=== PATIENT | female | born 1975 | race Caucasian/White ===

== ENCOUNTER 2017-09-16 19:11 | Emergency (ER) | payer BC, OTHER ==
[2017-09-16] MEDS ORDERED: Adacel (T-DAP) 0.5 ML VIAL ONE (19:21)
== END 2017-09-16 19:44 | disposition home or self-care (01) ==
LOC: SCSER 19:11
DX: S51.812A Laceration without foreign body of left forearm, initial encounter (principal); G40.909 Epilepsy, unspecified, not intractable, without status epilepticus; F41.9 Anxiety disorder, unspecified; Z79.899 Other long term (current) drug therapy; Z23 Encounter for immunization; W54.0XXA Bitten by dog, initial encounter
CPT/HCPCS: 90471; 90715

== ENCOUNTER 2017-09-17 18:38 | Emergency (ER) | payer BC, OTHER ==
[2017-09-17] MEDS ORDERED: Sulfameth/Trimethoprim DS 800-160mg TAB ONE (19:32)
[2017-09-17] MEDS ORDERED: cefTRIAXone\\ROCEPHIN 1 GM VIAL ONE (19:33)
[2017-09-17] MEDS ORDERED: Lidocaine 1% PF 5 ML VIAL ONE (19:33)
--- NOTE | 2017-09-17 20:02 | RAD ---
LEFT FOREARM: 09/17/17 Two views. HISTORY: Swelling and redness left hand and forearm. Dog bite yesterday. No fracture or osseous abnormality. No soft tissue gas. IMPRESSION: No acute finding. POS: [facility]
== END 2017-09-17 20:19 | disposition home or self-care (01) ==
LOC: SCSER 18:38
DX: S51.852A Open bite of left forearm, initial encounter (principal); L03.114 Cellulitis of left upper limb; G40.909 Epilepsy, unspecified, not intractable, without status epilepticus; F41.9 Anxiety disorder, unspecified; Z79.899 Other long term (current) drug therapy; W54.0XXA Bitten by dog, initial encounter
CPT/HCPCS: 96372; J0696; J2001

== ENCOUNTER 2017-09-18 12:33 | Emergency (ER) | payer BC ==
[2017-09-18] MEDS ORDERED: Bacitracin Zinc 1 Packet ONE (13:30)
== END 2017-09-18 13:46 | disposition home or self-care (01) ==
LOC: SCSER 12:33
DX: S51.852D Open bite of left forearm, subsequent encounter (principal); G40.909 Epilepsy, unspecified, not intractable, without status epilepticus; F41.9 Anxiety disorder, unspecified; Z79.899 Other long term (current) drug therapy; W54.0XXA Bitten by dog, initial encounter
CPT/HCPCS: 99282

== ENCOUNTER 2018-03-11 07:28 | Emergency (ER) | payer BC, OTHER ==
[2018-03-11] MEDS ORDERED: Lidocaine 1% w/Epinephrine 1:100K 20 ML VIAL ONE (08:03)
[2018-03-11 08:26] LABS: #Basophils 0.1 thou/uL (0.0-0.2); #Eosinphils 0.2 thou/uL (0.0-0.7); #Monocytes 0.3 thou/uL (0.11-0.59); #Neutrophils 1.8 thou/uL (1.40-6.50); %Basophils 2.5 % (0.0-1.0); %Eosinophils 7.1 % (0.0-10.0); %Lymphocytes 28.8 % (21.0-51.0); %Monocytes 8.1 % (0.0-10.0); %Neutrophils 53.5 % (42.0-75.0); Hemoglobin 10.4 g/dL (12.0-16.0); Mean Corpuscular HGB CONC 32.5 g/dL (32.0-36.0); Mean Corpuscular Hemoglobin 25.2 pg (27.0-31.0); Mean Corpuscular Volume 77.5 fl (81.0-99.0); PTT 28.8 SEC (22.9-36.1); Platelet Count 224 thou/uL (130-400); Prothrombin Time 13.7 SEC (12.0-14.7); RBC Distribution Width 15.1 % (11.5-14.5); Red Blood Cell (RBC) Count 4.11 mill/uL (4.20-5.40); White Blood Cell (WBC) Count 3.3 thou/uL (4.8-10.8)
== END 2018-03-11 09:15 | disposition home or self-care (01) ==
LOC: SCSER 07:28
DX: I77.9 Disorder of arteries and arterioles, unspecified (principal); G47.30 Sleep apnea, unspecified; G40.909 Epilepsy, unspecified, not intractable, without status epilepticus; F32.9 Major depressive disorder, single episode, unspecified; F41.9 Anxiety disorder, unspecified; Z79.899 Other long term (current) drug therapy
CPT/HCPCS: 12001; 36415; 85025; 85610; 85730; J2001

== ENCOUNTER 2018-10-09 11:20 | Outpatient (CLI) | payer BC | END 2018-10-09 11:21 | disposition home or self-care (01) | LOC: BICMAMMO 11:20 | PROVIDERS: ATTEND Family Medicine | DX: Z12.31 Encounter for screening mammogram for malignant neoplasm of breast (principal); Z80.3 Family history of malignant neoplasm of breast | CPT/HCPCS: 77063; 77067 ==

== ENCOUNTER 2018-12-07 01:35 | Emergency (ER) | payer BC ==
[2018-12-07] MEDS ORDERED: Lorazepam 2 MG/ML VIAL ONE (01:54)
[2018-12-07 03:08] LABS: Bilirubin Negative (Negative); Blood, Urine Trace (Negative); Clarity Clear (Clear); Glucose, Urine (Dipstick) Negative (Negative); Leukocyte Negative (Negative); Nitrite Negative (Negative); Protein, Urine (Dipstick) Trace mg/dL (Neg-Trace); Urobilinogen 0.2 mg/dL (0.2-1.0); pH, Urine 5.5 (5.0-9.0)
[2018-12-07 03:19] LABS: #Basophils 0.1 thou/uL (0.0-0.2); #Lymphocytes 0.7 thou/uL (1.20-3.40); #Monocytes 0.2 thou/uL (0.11-0.59); #Neutrophils 6.1 thou/uL (1.40-6.50); %Eosinophils 0.6 % (0.0-10.0); %Lymphocytes 9.9 % (21.0-51.0); %Monocytes 3.3 % (0.0-10.0); %Neutrophils 85.2 % (42.0-75.0); Anisocytosis SLIGHT = 6-15 cells (100X) (0-5/hpf); Hemoglobin 12.1 g/dL (12.0-16.0); MDiff Complete? YES; Mean Corpuscular HGB CONC 31.9 g/dL (32.0-36.0); Mean Corpuscular Hemoglobin 24.8 pg (27.0-31.0); Mean Corpuscular Volume 77.8 fL (78.0-98.0); Mean Platelet Volume 8.5 fL (7.4-10.4); Platelet Count 250 thou/uL (130-400); RBC Distribution Width 17.7 % (11.5-14.5); Red Blood Cell (RBC) Count 4.87 mill/uL (4.20-5.40); White Blood Cell (WBC) Count 7.1 thou/uL (4.8-10.8)
[2018-12-07 03:20] LABS: Bacteria/HPF None Seen HPF (None Seen); Crystals/HPF 1+ AMORPH PHOS HPF (Negative); Hyaline Casts/LPF 0-3 HYALINE CAST LPF (0-3 Hyaline); RBC/HPF 0-3 HPF (0-3); Squamous Epithelial 0-3 HPF (0-3); WBC/HPF 0-3 HPF (0-3)
[2018-12-07 04:25] LABS: ALT (SGPT) 13 U/L (8-55); AST (SGOT) 16 U/L (5-34); Albumin 4.2 g/dL (3.5-5.0); Alkaline Phosphatase 126 U/L (40-150); Anion Gap 20 mmol/L (10-20); BUN (Urea Nitrogen) 10 mg/dL (7.0-18.7); Bilirubin, Total 0.2 mg/dL (0.2-1.2); Calc. Creatinine Clearance 0 mL/min (70-130); Calcium 9.3 mg/dL (7.8-10.44); Carbon Dioxide 16 mmol/L (22-29); Chloride 105 mmol/L (98-107); Estimated GFR-MDRD 82; Globulin 3.6 g/dL (2.4-3.5); Glucose 136 mg/dL (70-105); Potassium 3.6 mmol/L (3.5-5.1); Protein, Total 7.8 g/dL (6.0-8.3); Sodium 137 mmol/L (136-145)
[2018-12-07 05:36] LABS: Carbamazepine-Tegretol 7.6 ug/mL (4.0-12.0)
[2018-12-07] MEDS ORDERED: levETIRAcetam 500 MG TAB ONE (06:37)
[2018-12-07] MEDS ORDERED: Acetaminophen 500 MG TAB ONE (06:53)
--- NOTE | 2018-12-07 09:55 | CT ---
PRELIMINARY REPORT/[facility]/EMERGENTY AFTER-HOURS PROCEDURE CT Head Without Contrast EXAM DATE/TIME: 12/07/2018 2:30 AM CLINICAL HISTORY: 43 years old, female; Injury or trauma; Fall; Patient HX: Family reports patient has history of seizu res, but has not had one in 6 years. Family member reports that patient had on one seizure yesterday and 2 tonight. Reports taking seizure medications has scheduled. TECHNIQUE: Axial computed tomography images of the head/brain without contrast. COMPARISON: No relevant prior studies available. FINDINGS: Brain: Normal. No hemorrhage. No significant white matter disease. No edema. Ventricles: Normal. No ventriculomegaly. Bones/joints: Unremarkable. No acute fracture. Sinuses: Visualized sinuses are unremarkable. No acute sinusitis. Mastoid air cells: Visualized mastoid air cells are unremarkable. No mastoid effusion. Soft tissues: Unremarkable. Other findings: Evaluation is somewhat limited by streak artifact. IMPRESSION: No acute intracranial hemorrhage. Thank you for allowing us to participate in the care of your patient. Dictated and Authenticated by: Donis Ring MD 12/07/2018 3:41 AM Central Time ([place] & [place]) FINAL REPORT EMERGENT AFTER HOURS CT OF THE BRAIN WITHOUT CONTRAST: FINDINGS/IMPRESSION: I agree with the findings and impression given in the preliminary report per [facility] physician. No nell dence of acute intracranial abnormality. POS: [facility]
== END 2018-12-07 07:06 | disposition home or self-care (01) ==
LOC: SCSER 01:35
DX: G40.909 Epilepsy, unspecified, not intractable, without status epilepticus (principal); G47.00 Insomnia, unspecified; F41.9 Anxiety disorder, unspecified; F32.9 Major depressive disorder, single episode, unspecified
CPT/HCPCS: 51701; 70450; 80053; 80156; 81003; 81015; 85025; 96374; J2060

== ENCOUNTER 2020-06-30 08:42 | Outpatient (CLI) | payer BC ==
--- NOTE | 2020-06-30 09:18 | MMO ---
Bilateral MAMMO Bilat Screen [facility]. CLINICAL HISTORY: Patient is 44 years old and is seen for screening. The patient has the following family history of breast cancer: mother, at age 43 and maternal aunt. The patient has no personal history of cancer. VIEWS: The views performed were: bilateral craniocaudal with tomosynthesis and bilateral mediolateral oblique with tomosynthesis. FILMS COMPARED: The present examination has been compared to prior imaging studies performed at [facility] on 04/12/2016 and 10/09/2018. This study has been interpreted with the assistance of computer-aided detection. MAMMOGRAM FINDINGS: There are scattered fibroglandular densities. There is a round mass measuring 4 millimeters seen in the lower-outer region of the right breast. In the left breast, there are no suspicious masses, calcifications or areas of architectural distortion. IMPRESSION: MASS IN THE RIGHT BREAST REQUIRES ADDITIONAL EVALUATION. SPOT COMPRESSION IS RECOMMENDED. AN ULTRASOUND EXAM IS RECOMMENDED. ADDITIONAL IMAGING. THE RESULTS OF THIS EXAM WERE SENT TO THE PATIENT. ACR BI-RADS Category 0 - Incomplete: Need additional imaging evaluation. [facility] will notify the patient of the need for additional imaging services. MAMMOGRAPHY NOTE: 1. A negative mammogram report should not delay a biopsy if a dominant of clinically suspicious mass is present. 2. Approximately 10% to 15% of breast cancers are not detected by mammography. 3. Adenosis and dense breasts may obscure an underlying neoplasm. Reported by: GOOD ANGUIANO MD Electonically Signed: [id number]
== END 2020-06-30 08:43 | disposition home or self-care (01) ==
LOC: BICMAMMO 08:42
PROVIDERS: ATTEND Family Medicine
DX: Z12.31 Encounter for screening mammogram for malignant neoplasm of breast (principal); Z80.3 Family history of malignant neoplasm of breast; N63.10 Unspecified lump in the right breast, unspecified quadrant
CPT/HCPCS: 77063; 77067

== ENCOUNTER 2021-01-05 14:41 | Outpatient (CLI) | payer BC | END 2021-01-05 14:42 | disposition home or self-care (01) | LOC: BICMAMMO 14:41 | PROVIDERS: ATTEND Family Medicine | DX: N63.10 Unspecified lump in the right breast, unspecified quadrant (principal) | CPT/HCPCS: G0279 ==

== ENCOUNTER 2021-07-19 18:30 | Outpatient (CLI) | payer BC | END 2021-07-19 18:31 | disposition home or self-care (01) | LOC: SLEEPLAB 18:30 | PROVIDERS: ATTEND Family Medicine | DX: G47.33 Obstructive sleep apnea (adult) (pediatric) (principal); R53.83 Other fatigue; G47.00 Insomnia, unspecified | CPT/HCPCS: 95806 ==

== ENCOUNTER 2022-02-18 11:57 | Emergency (ER) | payer BC, OTHER | END 2022-02-18 14:56 | disposition home or self-care (01) | LOC: ERS 11:57 | DX: S60.221A Contusion of right hand, initial encounter (principal); G40.909 Epilepsy, unspecified, not intractable, without status epilepticus; W22.8XXA Striking against or struck by other objects, initial encounter | CPT/HCPCS: 29125 ==

== ENCOUNTER 2022-04-03 08:05 | Outpatient (CLI) | payer BC | END 2022-04-03 08:06 | disposition home or self-care (01) | LOC: BICMAMMO 08:05 | PROVIDERS: ATTEND Family Medicine | DX: N63.20 Unspecified lump in the left breast, unspecified quadrant (principal) | CPT/HCPCS: 77066; G0279 ==

== ENCOUNTER 2023-02-07 08:44 | Outpatient (CLI) | payer BC | END 2023-02-07 08:45 | disposition home or self-care (01) | LOC: BICMAMMO 08:44 | PROVIDERS: ATTEND Physician Assistant | DX: R92.8 Other abnormal and inconclusive findings on diagnostic imaging of breast (principal); N60.12 Diffuse cystic mastopathy of left breast | CPT/HCPCS: 77066; G0279 ==

== ENCOUNTER 2023-12-02 15:18 | Outpatient (CLI) | payer BC | END 2023-12-02 15:19 | disposition home or self-care (01) | LOC: SCSMRI 15:18 | PROVIDERS: ATTEND Physician Assistant | DX: M79.672 Pain in left foot (principal); M77.52 Other enthesopathy of left foot and ankle ==